=== PATIENT | male | born 1965 | race Asian ===

== ENCOUNTER 2016-10-18 04:06 | Emergency (ER) | payer SELFPAY ==
[2016-10-18 04:15] VITALS: BP 140/93
== END 2016-10-18 05:01 | disposition home or self-care (01) ==
LOC: ED 04:06
DX: T78.1XXA Other adverse food reactions, not elsewhere classified, initial encounter (principal); R21 Rash and other nonspecific skin eruption; R13.10 Dysphagia, unspecified; X58.XXXA Exposure to other specified factors, initial encounter; Z88.0 Allergy status to penicillin; Z88.2 Allergy status to sulfonamides; Z91.013 Allergy to seafood
CPT/HCPCS: J7512; Q0163